=== PATIENT | female | born 1940 | race Caucasian/White ===

== ENCOUNTER 2020-03-14 10:55 | Outpatient (CLI) | payer MEDICARE, MEDICAID, SELFPAY ==
--- NOTE | ~2020-03-14 | CT_ITS ---
EXAMINATION: CT chest abdomen pelvis wo con DATE: 03/14/2020 11:37 INDICATION: Large B-cell lymphoma restaging TECHNIQUE: Computed tomography (CT) of the chest, abdomen, and pelvis was performed without intraveno us contrast. Automated exposure control and iterative reconstruction technique were employed. Exam do se: 852.06 mGy-cm total exam DLP. COMPARISON: 09/21/2019 CT chest abdomen pelvis FINDINGS: CHEST CT: Occasional calcified pulmonary granulomas and mild chronic discoid scarring in the middle lobe and li ngula. No pulmonary infiltrate or consolidation. Left sided transvenous pacemaker device with right atrial and right ventricular leads. Right Port-A-C ath catheter in superior vena cava. Normal heart size. No pericardial effusion. No evidence of thoracic aortic aneurysm. There are aortic and great vessel and coronary artery calcif ications consistent with atherosclerosis. No hilar or mediastinal mass lesion or lymphadenopathy is evident. ABDOMEN/PELVIS CT: Status post cholecystectomy. No hepatic space-occupying mass lesion. No bile duct dilatation. No panc reatic mass lesion, calcification or ductal dilatation. Normal splenic size. Normal morphology of the adrenal glands. No renal mass lesion or urinary tract calculus or hydroureteronephrosis. The urinary bladder is unrem arkable. There is atherosclerotic calcification of the abdominal aorta but no aneurysm. No intraperitoneal or retroperitoneal or pelvic mass lesion or adenopathy or ascites. Diverticulosis of the colon, primarily involving the left colon; no CT evidence of diverticulitis. No bowel obstruction or intraperitoneal free air. Very small fat-containing umbilical hernia. No suspicious osteolytic or osteoblastic lesions. There is grade 1 anterolisthesis at L4-5 due to degenerative change at the apophyseal joints. Promine nt degenerative disc disease is noted at L1-2. IMPRESSION: No evidence of thoracic, abdominal or pelvic lymphadenopathy Status post cholecystectomy Diverticulosis of the colon Right Port-A-Cath Left-sided dual-lead pacemaker Reviewed, dictated and finalized at [facility] Reviewed, dictated and finalized at [facility].
== END 2020-03-14 10:56 | disposition home or self-care (01) ==
LOC: ANHIMG 11:04
PROVIDERS: PCP Internal Medicine; Visit Provider Internal Medicine Medical Oncology
DX: C83.38 Diffuse large B-cell lymphoma, lymph nodes of multiple sites (principal); Z90.49 Acquired absence of other specified parts of digestive tract; K57.90 Diverticulosis of intestine, part unspecified, without perforation or abscess without bleeding; Z96.89 Presence of other specified functional implants; Z95.0 Presence of cardiac pacemaker
CPT/HCPCS: 71250; 74176

== ENCOUNTER 2020-04-02 00:22 | Outpatient (CLI) | payer MEDICARE, MEDICAID, SELFPAY ==
[2020-04-02 18:55] LABS: SARS-CoV-2 RNA PCR Negative
== END 2020-04-02 00:23 | disposition home or self-care (01) ==
LOC: ANHCOVIDDT 00:22
PROVIDERS: PCP Internal Medicine; Visit Provider Surgery
DX: Z01.818 Encounter for other preprocedural examination (principal); Z11.59 Encounter for screening for other viral diseases; C83.30 Diffuse large B-cell lymphoma, unspecified site
CPT/HCPCS: 87635; C9803; U0003

== ENCOUNTER 2020-04-04 00:43 | Day surgery (SDC) | payer MEDICARE, MEDICAID, SELFPAY ==
[2020-03-29 15:58] VITALS: BMI 36.6
--- NOTE | 2020-04-04 07:29 | PM.IMHP ---
H&P: HPI History of Present Illness Chief complaint: Large B Cell Lymphoma Narrative: Aline Restrepo is a 79 year old female that had R sided port placed for chemotherapy in 09/27. Pt reports she had lymphoma at that time and was treated successfully over the period of 09/27 - 04/28. Pt reports VAD has never gave her any issues but it has been about a yr since last chemotx. Pt reports about a month ago, attempted blood draw was done thru port that was unsuccessful. Review of Systems Constitutional: Constitutional: Denies anorexia, Denies chills, Denies fatigue, Denies headache(s), Denies malaise, Denies poor appetite, Denies weight gain and Denies weight loss Eyes: Eyes: Denies no additional eye complaints and Denies change in vision ENT: Denies Normal hearing present, Denies headache(s), Denies hearing loss and Denies sore throat Cardiovascular: Cardiovascular: Denies chest pain, Denies palpitations and Denies dyspnea Respiratory: Respiratory: Denies cough and Denies dyspnea Gastrointestinal: Gastrointestinal: Denies abdominal pain, Denies change in stool character, Denies constipation, Denies diarrhea, Denies nausea and Denies vomiting Genitourinary: Genitourinary: Denies urinary frequency, Denies dysuria and Denies urinary urgency Musculoskeletal: Musculoskeletal: Reports no additional musculoskeletal complaints Integumentary/Breasts: Skin/Breast: Denies pruritus, Denies lesions and Denies wounds Neurologic: Denies confusion and Denies headache(s) Psychiatric: Psychiatric: Reports no additional psychiatric complaints and Denies confusion Endocrine: Endocrine: Reports no additional endocrine complaints, Denies fatigue and Denies palpitations Hematologic/Lymphatic: Hematologic/Lymphatic: Reports no additional hematologic/lymphatic complaints Allergic/Immunologic: Allergic/Immunologic: Reports no additional allergic/immunologic complaints FOR[facility], [facility] Past Medical History Medical History Anxiety COPD (chronic obstructive pulmonary disease) CVA (cerebral vascular accident) years ago no deficits Depression GERD (gastroesophageal reflux disease) Lymphoma Pacemaker Surgical History Surgical History History of appendectomy History of cholecystectomy History of hysterectomy S/P cervical spinal fusion Family History Family History Other Diabetes mellitus Family history of cardiovascular disease Hypertension Social History Social History Smoking status: Former smoker Smoking end date: 10/11/97 Alcohol intake: never Meds Home Medications and Allergies Home Medications Medication Instructions Recorded Confirmed Type albuterol sulfate [Ventolin HFA] 2 puff INHALATION QID PRN 03/29/20 03/29/20 History budesonide-formoterol [Symbicort] 2 puff INHALATION Q12H 03/29/20 03/29/20 History cholecalciferol (vitamin D3) 25 mcg PO DAILY 03/29/20 03/29/20 History dexlansoprazole [Dexilant] 60 mg PO DAILY 03/29/20 03/29/20 History lidocaine 1 patch TOPICAL DAILY PRN 03/29/20 03/29/20 History paroxetine HCl 20 mg PO HS 03/29/20 03/29/20 History tiotropium bromide [Spiriva 2 inh INHALATION QAM 03/29/20 03/29/20 History Respimat] valacyclovir 500 mg PO HS 03/29/20 03/29/20 History Allergies Allergy/AdvReac Type Severity Reaction Status Date / Time Contrast Media Allergy Severe RASH Uncoded 03/29/20 15:28 Exam Const: General: cooperative, healthy appearing, no acute distress and well developed; No confusion Orientation/consciousness: patient oriented x3 and No confusion HENMT: Head: normal to inspection, normocephalic and atraumatic Mouth: Yes Normal oral and palatal mucosa present and Yes moist mucous membranes Teeth and gingiva: dentition normal Eyes: Conjunctivae: conjunctivae normal Pup
[2020-04-04] MEDS: LACTATED RINGERS 1,000 ML 30 ML IV CONT (07:30)
[2020-04-04] MEDS: IBUPROFEN IV 800 MG/200 ML 800 MG/200 ML BAG 400 MG IVPB (07:30)
--- NOTE | 2020-04-04 07:36 | WPDANESEPPF ---
Anes - Initial Pre Proc Eval Procedure: Operation Date: 04/04/20 09:00 Proposed Procedures p Removal Wendi Cath - Emma Aguila MD Date/Time: 04/04/20 07:36 Surgeon: Emma Aguila MD Pre Op Diagnosis: Large B Cell Lymphoma Patient Data Age: 79 Gender: F Height: 1.5 m Weight: 82.27 kg Allergies Allergy/AdvReac Type Severity Reaction Status Date / Time Contrast Media Allergy Severe RASH Uncoded 03/29/20 15:28 Home Medications Medication Instructions Recorded Confirmed Type albuterol sulfate [Ventolin HFA] 2 puff INHALATION QID PRN 03/29/20 03/29/20 History budesonide-formoterol [Symbicort] 2 puff INHALATION Q12H 03/29/20 03/29/20 History cholecalciferol (vitamin D3) 25 mcg PO DAILY 03/29/20 03/29/20 History dexlansoprazole [Dexilant] 60 mg PO DAILY 03/29/20 03/29/20 History lidocaine 1 patch TOPICAL DAILY PRN 03/29/20 03/29/20 History paroxetine HCl 20 mg PO HS 03/29/20 03/29/20 History tiotropium bromide [Spiriva 2 inh INHALATION QAM 03/29/20 03/29/20 History Respimat] valacyclovir 500 mg PO HS 03/29/20 03/29/20 History Patient hx anesthesia problems: none Family hx anesthesia problems: none PMFSH Past Medical History Medical History Anxiety COPD (chronic obstructive pulmonary disease) CVA (cerebral vascular accident) years ago no deficits Depression GERD (gastroesophageal reflux disease) Lymphoma Pacemaker Surgical History Surgical History History of appendectomy History of cholecystectomy History of hysterectomy S/P cervical spinal fusion Family History Family History Other Diabetes mellitus Family history of cardiovascular disease Hypertension Social History Social History Smoking status: Former smoker Smoking end date: 10/11/97 Alcohol intake: never Anes - Eval Final PreProcedure Day of Procedure 04/04/20 07:36 Patient weight: obese Heart: regular rate and rhythm Lungs: clear to auscultation and normal air movement Airway: Mallampati scale class III Neurological: alert and oriented Last oral intake: >/= 8 hours ASA classification: III Emergent: no Anesthetic plan: proceed Anesthesia type and monitoring: general GIVS and standard monitoring Informed Consent: The patient's anesthetic plan and its attendant risks and benefits were discussed with the patient/family/POA. Questions were solicited and answers provided to the satisfaction of the patient/family/POA.
[2020-04-04 08:15] VITALS: BP 122/64; PULSE 84; RESP 18; TEMP 36.4; O2SAT 97
[2020-04-04] MEDS: ceFAZolin 2 GM/D5W 50 ML 2 GM/50 ML BAG IVPB (08:43)
[2020-04-04] MEDS: BUPIVACAINE/EPINEPHRINE 0.5% 30 ML VIAL INFILTRATE (09:00)
--- NOTE | 2020-04-04 09:12 | PM.PROC ---
Procedure Note - Detailed Date of procedure: 04/04/20 Pre-op diagnosis: Large B Cell Lymphoma Post-op diagnosis: same Procedure performed: Removal right chest venous access device Description of procedure: The patient was taken to the operating room placed in the supine position. After adequate induction of MAC anesthesia, the patient was prepped and draped in the normal sterile fashion. A time-out was then done to verify the patient's identity, as well as the procedure being performed. I began by localizing the previous incision line in the right chest and around the port itself. Once this was done, I made an incision through the old incision to the level of the port. I then bluntly dissected around the port, and located the 2 sutures holding the port in place. I then cut the 2 sutures and removed the port from the pocket. I was then able to remove the port and catheter in full. The catheter was noted in the right subclavian vein. I then held pressure at the level of the right subclavian vein for approximately 5 minutes. Hemostasis was noted after pressure was held. I then localized the pocket further and closed the subcutaneous tissue with 3 0 Vicryl suture. I then closed the skin with 4 O Monocryl subcuticular suture. Dermabond was then placed on the wound. The patient tolerated the procedure well, was alert and awake in the operating room postoperatively, and will be transferred to the recovery in stable condition. Implants: none Anesthesia: MAC and local Surgeon: Emma Aguila MD Estimated blood loss (mL): 5 Drains: No Packing: No Pathology: none sent Complications: No immediate complications Condition: stable Disposition: PACU Findings: right-sided VAD
[2020-04-04 09:14] VITALS: BP 130/63; PULSE 69; RESP 16; O2SAT 100
[2020-04-04 09:44] VITALS: BP 138/96; PULSE 70; RESP 16
[2020-04-04 10:14] VITALS: BP 140/74; PULSE 63; RESP 16
== END 2020-04-04 10:30 | disposition home or self-care (01) ==
PROVIDERS: PCP Internal Medicine; Visit Provider Surgery
PROC: (CPT 36589; principal; 2020-04-04 09:00)
DX: Z45.2 Encounter for adjustment and management of vascular access device (principal); Z85.72 Personal history of non-Hodgkin lymphomas; Z92.21 Personal history of antineoplastic chemotherapy; J44.9 Chronic obstructive pulmonary disease, unspecified; K21.9 Gastro-esophageal reflux disease without esophagitis; E66.9 Obesity, unspecified; Z68.37 Body mass index [BMI] 37.0-37.9, adult; F32.9 Major depressive disorder, single episode, unspecified; Z87.891 Personal history of nicotine dependence; Z86.73 Personal history of transient ischemic attack (TIA), and cerebral infarction without residual deficits; Z95.0 Presence of cardiac pacemaker; Z79.899 Other long term (current) drug therapy; Z91.041 Radiographic dye allergy status
CPT/HCPCS: 36590; 87635; C9803; J0690; J1741; J2704; J3010; J7120; U0003

== ENCOUNTER → 2020-10-14 12:55 | Outpatient (CLI) | payer MEDICARE, MEDICAID, SELFPAY ==
--- NOTE | ~2020-10-14 | CT_ITS ---
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 TECHNIQUE: Spiral CT of the chest, abdomen and pelvis was performed without contrast. Axial, ribeiro l and sagittal images were reviewed. Coronal maximum intensity pixel images of chest reviewed. The dose-length product (DLP) for this examination was 1075.21 mGy-cm. The exposure was tailored accordi ng to patient size (auto mA exposure control), and iterative reconstruction (ASIR) was used as additi onal dose reduction technique. Comparison is made to prior examination from 03/14/2020. FINDINGS: CHEST: Lingular subsegmental atelectasis. There is mild emphysema, mild to moderate hyperinflation. There are no pleural or pericardial effusions. Tracheobronchial tree is patent. There is no media stinal, hilar or axillary lymphadenopathy. There is no pneumothorax. Heart normal in size. Ther e is mild to moderate coronary arterial calcification, arterial sclerosis. There is a left-sided pace maker/AICD device. Previously seen right-sided portacatheter has been removed. ABDOMEN PELVIS: The liver, spleen, adrenal glands and pancreas are unremarkable. Gallbladder not tavia ntified, patient likely has had cholecystectomy. There is no nephrolithiasis or hydronephrosis. Th e uterus is not identified and has likely been surgically resected. The bladder is unremarkable. Sma ll residual upper retroperitoneal soft tissue density, patient's treated lymphoma. There is no retrop eritoneal or pelvic lymphadenopathy. There is moderate scattered arteriosclerotic disease. The appendix is normal. There is a 2 cm duodenal diverticulum. There is expected amount of colonic stool. There is mild to moderate sigmoid predominant colonic diverticulosis. There is no adjacent in flammatory change to suggest diverticulitis. There are no osteoblastic or osteolytic lesions identifi ed. IMPRESSION: 1. No chest, abdomen or pelvis lymphadenopathy. Stable exam. 2. Mild to moderate colonic diverticulosis. 3. Subsegmental atelectasis. 4. Emphysema, hyperinflation. 5. Duodenal diverticulum. Reviewed, dictated and finalized at [facility]
== END ==
PROVIDERS: PCP Internal Medicine; Visit Provider Internal Medicine Medical Oncology
DX: C83.38 Diffuse large B-cell lymphoma, lymph nodes of multiple sites (principal); K57.90 Diverticulosis of intestine, part unspecified, without perforation or abscess without bleeding; J43.9 Emphysema, unspecified; R91.8 Other nonspecific abnormal finding of lung field; K57.10 Diverticulosis of small intestine without perforation or abscess without bleeding
CPT/HCPCS: 71250; 74176